=== PATIENT | female | born 2000 | race Two or more races ===

== ENCOUNTER 2023-07-06 12:40 | Emergency (ER) | payer SELFPAY ==
[2023-07-06] MEDS ORDERED: Lidocaine/Transparent Dressing 1 EACH KIT ONE (14:22)
[2023-07-06] MEDS ORDERED: Lidocaine 2% PF 5 ML VIAL ONE (16:20)
== END 2023-07-06 17:10 | disposition home or self-care (01) ==
LOC: ERS 12:40
DX: L02.11 Cutaneous abscess of neck (principal); L03.221 Cellulitis of neck; Z55.6 Problems related to health literacy
CPT/HCPCS: 99283; J2001